=== PATIENT | female | born 1995 | race African-American/Black ===

== ENCOUNTER 2017-05-18 16:19 | Emergency (ER) | payer OTHER ==
[~2017-05-18] VITALS: Ht 157.5 cm; Wt 54.4 kg
[2017-05-18] MEDS ORDERED: MOBIC7.5 MG PO (16:52)
[2017-05-18] MEDS ORDERED: PENICILLIN VK500 M1 PO (16:52)
== END 2017-05-18 16:57 | disposition home or self-care (01) ==
LOC: ER 16:19
DX: J02.0 Streptococcal pharyngitis (principal)

== ENCOUNTER 2018-02-01 22:33 | Emergency (ER) | payer OTHER ==
[~2018-02-01] VITALS: Ht 157.5 cm; Wt 54.4 kg
[~2018-02-01 22:33] MED LIST: MOBIC7.5 MG PO; PENICILLIN VK500 M1 PO
[2018-02-01 23:22] LABS: URINE BILIRUBIN NEGATIVE (Negative); URINE BLOOD NEGATIVE (Negative); URINE CLARITY CLEAR; URINE COLOR YELLOW; URINE GLUCOSE-RANDOM* NEGATIVE (Negative); URINE KETONES NEGATIVE (Negative); URINE NITRITE-REFLEX NEGATIVE (Negative); URINE PROTEIN (DIPSTICK) NEGATIVE (Negative); URINE SPECIFIC GRAVITY 1.025 (1.005-1.035)
[2018-02-01] MEDS ORDERED: NOHOMEMEDICATIONS (23:22)
[2018-02-01 23:24] LABS: URINE LEUKOCYTES-REFLEX 1+ (Negative)
[2018-02-01 23:36] LABS: CASTS None Seen /LPF (None Seen); CRYSTALS None Seen /LPF (None Seen); MUCUS 0-3 Light strn/LPF (None Seen); SQUAMOUS 4-10 Moderate /LPF (0-3); URINE RBC 0-2 Rare /HPF (0-2); URINE WBC-REFLEX 6-15 Few /HPF (0-5)
[2018-02-01 23:42] LABS: ABSOLUTE NEUTROPHILS 3.9 thou/uL (1.4-8.2); EOSINOPHILS 2.4 % (0.0-3.0); HEMATOCRIT 27.2 % (37.0-47.0); HEMOGLOBIN 8.9 gm/dL (12.0-15.0); LYMPHOCYTES 32.5 % (24.0-44.0); MCHC 32.6 g/dL (28.0-37.0); MCV 76.7 fL (80.0-100.0); MONOCYTES 7.7 % (1.0-8.0); PLATELET COUNT 226 thou/uL (150-400); POLYS 56.4 % (36.0-66.0); RBC 3.55 mil/uL (4.20-5.00); RDW 18.3 % (10.5-14.5); WBC 6.8 thou/uL (4.0-11.0)
[2018-02-01 23:48] LABS: ANION GAP 9 mmol/L (7-16); BUN 9 mg/dL (7-18); CALCIUM 9.2 mg/dL (8.5-10.1); CHLORIDE 105 mmol/L (98-107); CO2 23 mmol/L (21-32); CREATININE 0.6 mg/dL (0.6-1.0); GLUCOSE 95 mg/dL (74-106); POTASSIUM 3.7 mmol/L (3.5-5.1); SODIUM 137 mmol/L (136-145)
[2018-02-01 23:54] LABS: DIRECT BILIRUBIN < 0.1 mg/dL (<0.1-0.3); LIPASE 169 U/L (73-393); SGOT 17 U/L (15-37); SGPT 20 U/L (30-65); TOTAL BILIRUBIN 0.2 mg/dL (<0.1-1.0); TOTAL PROTEIN 7.4 g/dL (6.4-8.2)
[2018-02-02] MEDS ORDERED: REGLAN 5 MG TAB5 MG PO (02:11)
[2018-02-02 02:12] VITALS: BP 107/70
== END 2018-02-02 02:12 | disposition home or self-care (01) ==
LOC: ER 22:33
PROVIDERS: Emergency Medicine
DX: O26.899 Other specified pregnancy related conditions, unspecified trimester (principal); R10.9 Unspecified abdominal pain; Z3A.00 Weeks of gestation of pregnancy not specified